=== PATIENT | female | born 1995 | race American Indian/Alaskan Native ===

== ENCOUNTER 2017-11-11 14:17 | Inpatient (IN) | payer MEDICAID ==
[2017-11-11 15:22] LABS: ALB/GLOB RATIO 1.2 (1.0-2.1); ALBUMIN 4.4 g/dL (3.5-5.0); CALCIUM 8.5 mg/dl (8.6-10.4); GFR AFRICAN-AMERICAN > 60; GFR NON-AFRICAN AMERICAN > 60; LIPASE 115 U/L (23-300)
[2017-11-11 15:24] LABS: ALT/SGPT 11 U/L (9-52); AST/SGOT 38 U/L (14-36); BLOOD UREA NITROGEN 6 mg/dL (7-17)
[2017-11-11 15:32] LABS: MEAN CELL VOLUME 58.5 fL (81.0-99.0); MEAN CORPUSCULAR HEMOGLOBIN 17.1 pg (27.0-31.0); MEAN CORPUSCULAR HGB CONC 29.3 g/dL (33.0-37.0); MEAN PLATELET VOLUME 8.4 fL (7.2-11.7); RBC 2.68 Mil/uL (3.80-5.20); RED CELL DISTRIBUTION WIDTH 29.2 % (11.5-14.5); WHITE BLOOD COUNT 5.4 K/uL (4.8-10.8)
[2017-11-11 15:36] LABS: HEMOGLOBIN 4.6 g/dL (11.0-16.0)
[2017-11-11 15:37] LABS: INR 1.1; PROTHROMBIN TIME 12.7 SECONDS (9.7-12.2)
--- NOTE | 2017-11-11 16:22 | US ---
PROCEDURE: OB Pelvic Ultrasound HISTORY: low H/H COMPARISON: None available. FINDINGS: UTERUS: Single Live intrauterine gestation. CRL this 40 mm above the 10 weeks 6 days gestational age. Mean gestational sac diameter is 46 mm equivalent to 10 weeks 2 days. The composite gestational age by ultrasound is 10 weeks 4 days. The JOSE ALBERTO by ultrasound is 06/05/2018. A 4 mm yolk sac is visualized. Heart rate: 161 bpm. Ioana-gestational hemorrhage: None. 4 mm yolk sac identified. Uterus measures 12.2 x 7.7 x 9.1 cm. No mass CERVIX: Long and closed. No cervical abnormality seen. RIGHT OVARY: Measures 3.6 x 2.5 x 3.0 cm. No mass. Normal flow. LEFT OVARY: Measures 2.8 x 1.7 x 2.6 cm. No mass. Normal flow. FREE FLUID: None. OTHER FINDINGS: None. IMPRESSION: Single live intrauterine gestation of approximately 10 weeks 4 days gestational age. heart rate 161 beats per minute. No subchorionic hemorrhage. JOSE ALBERTO by ultrasound 06/05/2018.
[2017-11-11 16:37] LABS: SQUAMOUS EPITHIAL 3 /hpf (0-5); URINE BACTERIA FEW (<OCC); URINE BILIRUBIN NEGATIVE (NEGATIVE); URINE BLOOD NEGATIVE (NEGATIVE); URINE CLARITY Clear (Clear); URINE COLOR Yellow (YELLOW); URINE GLUCOSE (UA) NORMAL (Normal); URINE LEUKOCYTE ESTERASE 1+ Leu/uL (Negative); URINE NITRATE NEGATIVE (NEGATIVE); URINE PROTEIN NEGATIVE (NEGATIVE)
--- NOTE | 2017-11-11 17:05 | C.PDOC ---
History Of Present Illness 22 year old female presents to the ED after being sent from clinic for evaluation of low hemoglobin levels. Patient is and had her LMP on 09/02. Patient states she has been feeling fatigued for several months, but attributed the fatigue to heat during the summer months and to her currently. She states she was anemic during her first but only required iron and no transfusions. Patient has not undergone any hematological workup for her anemia and denies vaginal bleeding, vaginal discharge, bloody urine, and bloody stool at this time. Time Seen by Provider: 11/11/17 14:28 Chief Complaint (Nursing): Abnormal Labs History Per: Patient History/Exam Limitations: no limitations Onset/Duration Of Symptoms: Hrs Current Symptoms Are (Timing): Still Present Additional History Per: Patient Past Medical History Reviewed: Historical Data, Nursing Documentation, Vital Signs Vital Signs: Last Vital Signs Temp 98.9 F 11/11/17 18:15 Pulse 81 11/11/17 18:15 Resp 16 11/11/17 18:15 BP 116/63 11/11/17 18:15 Pulse Ox 100 11/11/17 18:15 - Medical History PMH: No Chronic Diseases Surgical History: No Surg Hx Family History: States: Unknown Family Hx - Social History Hx Alcohol Use: No Hx Substance Use: No - Immunization History Hx Tetanus Toxoid Vaccination: No Hx Influenza Vaccination: No Hx Pneumococcal Vaccination: No Review Of Systems Constitutional: Positive for: Other (low hemoglobin levels, generalized fatigue ) Gastrointestinal: Negative for: Hematochezia Genitourinary: Negative for: Hematuria, Vaginal Discharge, Vaginal Bleeding Physical Exam - Physical Exam Appears: Non-toxic, No Acute Distress Skin: Normal Color, Warm, Dry Head: Atraumatic, Normacephalic Eye(s): bilateral: Conjunctiva Pale Oral Mucosa: Moist Neck: Supple Chest: Symmetrical, No Deformity, No Tenderness Cardiovascular: Rhythm Regular, No Murmur Respiratory: Normal Breath Sounds, No Rales, No Rhonchi, No Wheezing Gastrointestinal/Abdominal: Soft, No Tenderness, No Guarding, No Rebound Extremity: Normal ROM, Capillary Refill (less than 2 seconds ) Neurological/Psych: Oriented x3, Normal Speech, Normal Cognition Gait: Steady ED Course And Treatment - Laboratory Results Result Diagrams: 11/11/17 15:18 11/11/17 14:55 O2 Sat by Pulse Oximetry: 100 (on RA) Pulse Ox Interpretation: Normal - CT Scan/US OB Pelvic US Other Rad Studies (CT/US): Interpreted By Me, Read By Radiologist, Radiology Report Reviewed CT/US Interpretation: PROCEDURE: OB Pelvic Ultrasound. HISTORY: low H/H. COMPARISON: None available. FINDINGS: UTERUS: Single Live intrauterine gestation. CRL this 40 mm above the 10 weeks 6 days gestational age. Mean gestational sac diameter is 46 mm equivalent to 10 weeks 2 days. The composite gestational age by ultrasound is 10 weeks 4 days. The JOSE ALBERTO by ultrasound is 06/05. A 4 mm yolk sac is visualized. Heart rate: 161 bpm. Ioana- gestational hemorrhage: None. 4 mm yolk sac identified. Uterus measures 12.2 x 7.7 x 9.1 cm. No mass. CERVIX: Long and closed. No cervical abnormality seen. RIGHT OVARY: Measures 3.6 x 2.5 x 3.0 cm. No mass. Normal flow. LEFT OVARY: Measures 2.8 x 1.7 x 2.6 cm. No mass. Normal flow. FREE FLUID: None. OTHER FINDINGS: None. IMPRESSION: Single live intrauterine gestation of approximately 10 weeks 4 days gestational age. heart rate 161 beats per minute. No subchorionic hemorrhage. JOSE ALBERTO by ultrasound 06/05/2018. Medical Decision Making Medical Decision Making: Progress: Bloodwork, Urinalysis, and US ordered and reviewed. Spoke to Dr. Haynes who recommended medical admission, and will be consulted on floor. Disposition - Disposition Disposition: HOME/ ROUTINE Disposition Time: 16:30 Condition: STABLE - Clinical Impression Clinical Impression: Anemia, and not yet delivered in first trimester - Scribe Statement The provider has reviewed the documentation as recorded by the Scribe (Xochitl Moulton) Provider Attestation: All medical record entries made by the Scribe were at my direction and personally dictated by me. I have reviewed the chart and agree that the record accurately reflects my personal performance of the history, physical exam, medical decision making, and the department course for this patient. I have also personally directed, reviewed, and agree with the discharge instructions and disposition.
--- NOTE | 2017-11-11 18:51 | CP.PCM.HP ---
Past Patient History - Past Social History Smoking Status: Heavy Smoker > 10 Cigarettes Daily - PSYCHIATRIC Hx Substance Use: No - SURGICAL HISTORY Hx Surgeries: No - ANESTHESIA Hx Anesthesia: No Hx Anesthesia Reactions: No Meds Allergies/Adverse Reactions: Allergies Allergy/AdvReac Type Severity Reaction Status Date / Time No Known Allergies Allergy Unverified 11/11/17 14:20 Results - Vital Signs Recent Vital Signs: Last Vital Signs Temp 98.9 F 11/11/17 18:15 Pulse 81 11/11/17 18:15 Resp 16 11/11/17 18:15 BP 116/63 11/11/17 18:15 Pulse Ox 100 11/11/17 18:15 - Labs Result Diagrams: 11/11/17 15:18 11/11/17 14:55 Labs: Laboratory Results - last 24 hr 11/11/17 11/11/17 11/11/17 14:55 14:55 14:55 WBC RBC Hgb Hct MCV MCH MCHC RDW Plt Count MPV PT INR APTT Sodium 133 Potassium 3.9 Chloride 103 Carbon Dioxide 21 L Anion Gap 14 BUN 6 L Creatinine 0.4 L Est GFR ( Amer) > 60 Est GFR (Non-Af Amer) > 60 Random Glucose 87 Calcium 8.5 L Total Bilirubin 0.6 AST 38 H ALT 11 Alkaline Phosphatase 34 L Total Protein 8.1 Albumin 4.4 Globulin 3.7 Albumin/Globulin Ratio 1.2 Lipase 115 Beta HCG, Quant 42293.00 Urine Color Urine Clarity Urine pH Ur Specific [place] Urine Protein Urine Glucose (UA) Urine Ketones Urine Blood Urine Nitrate Urine Bilirubin Urine Urobilinogen Ur Leukocyte Esterase Urine WBC (Auto) Urine RBC (Auto) Ur Squamous Epith Cells Urine Bacteria Blood Type B POSITIVE Antibody Screen Negative 11/11/17 11/11/17 11/11/17 15:18 15:18 16:09 WBC 5.4 RBC 2.68 L Hgb 4.6 L* Hct 15.7 L MCV 58.5 L MCH 17.1 L MCHC 29.3 L RDW 29.2 H Plt Count 145 MPV 8.4 PT 12.7 H INR 1.1 APTT 29 Sodium Potassium Chloride Carbon Dioxide Anion Gap BUN Creatinine Est GFR ( Amer) Est GFR (Non-Af Amer) Random Glucose Calcium Total Bilirubin AST ALT Alkaline Phosphatase Total Protein Albumin Globulin Albumin/Globulin Ratio Lipase Beta HCG, Quant Urine Color Yellow Urine Clarity Clear Urine pH 5.0 Ur Specific [place] 1.024 Urine Protein Negative Urine Glucose (UA) Normal Urine Ketones Negative Urine Blood Negative Urine Nitrate Negative Urine Bilirubin Negative Urine Urobilinogen 4.0 H Ur Leukocyte Esterase 1+ H Urine WBC (Auto) 6 H Urine RBC (Auto) 1 Ur Squamous Epith Cells 3 Urine Bacteria Few H Blood Type Antibody Screen
--- NOTE | 2017-11-11 19:26 | CP.PCM.CON ---
History of Present Illness - History of Present Illness History of Present Illness: 22 yr lmp 09/04/17 10.4weks edc 06/06/17 was send to er [facility] showed h/h very low. no vb. pt came to er. severe anmic. pt states undesird prgeg and wants termination. pt stats sob when walks for long time.no chest pain. obhx 2 x , 2 x ta pmh anemia med none all nkda psh de soch de abd soft,non tender h/h 4.6/15.7 Past Patient History - Past Social History Smoking Status: Heavy Smoker > 10 Cigarettes Daily - PSYCHIATRIC Hx Substance Use: No - SURGICAL HISTORY Hx Surgeries: No - ANESTHESIA Hx Anesthesia: No Hx Anesthesia Reactions: No Meds Allergies/Adverse Reactions: Allergies Allergy/AdvReac Type Severity Reaction Status Date / Time No Known Allergies Allergy Unverified 11/11/17 14:20 - Medications Medications: Current Medications Pantoprazole Sodium (Protonix Ec Tab) 40 mg PO DAILY JONNA Results - Vital Signs Recent Vital Signs: Last Vital Signs Temp 98.9 F 11/11/17 18:15 Pulse 81 11/11/17 18:15 Resp 16 11/11/17 18:15 BP 116/63 11/11/17 18:15 Pulse Ox 100 11/11/17 18:55 - Labs Result Diagrams: 11/11/17 15:18 11/11/17 14:55 Labs: Laboratory Results - last 24 hr 11/11/17 11/11/17 11/11/17 14:55 14:55 14:55 WBC RBC Hgb Hct MCV MCH MCHC RDW Plt Count MPV PT INR APTT Sodium 133 Potassium 3.9 Chloride 103 Carbon Dioxide 21 L Anion Gap 14 BUN 6 L Creatinine 0.4 L Est GFR ( Amer) > 60 Est GFR (Non-Af Amer) > 60 Random Glucose 87 Calcium 8.5 L Total Bilirubin 0.6 AST 38 H ALT 11 Alkaline Phosphatase 34 L Total Protein 8.1 Albumin 4.4 Globulin 3.7 Albumin/Globulin Ratio 1.2 Lipase 115 Beta HCG, Quant 09735.00 Urine Color Urine Clarity Urine pH Ur Specific [place] Urine Protein Urine Glucose (UA) Urine Ketones Urine Blood Urine Nitrate Urine Bilirubin Urine Urobilinogen Ur Leukocyte Esterase Urine WBC (Auto) Urine RBC (Auto) Ur Squamous Epith Cells Urine Bacteria Blood Type B POSITIVE Antibody Screen Negative 11/11/17 11/11/17 11/11/17 15:18 15:18 16:09 WBC 5.4 RBC 2.68 L Hgb 4.6 L* Hct 15.7 L MCV 58.5 L MCH 17.1 L MCHC 29.3 L RDW 29.2 H Plt Count 145 MPV 8.4 PT 12.7 H INR 1.1 APTT 29 Sodium Potassium Chloride Carbon Dioxide Anion Gap BUN Creatinine Est GFR ( Amer) Est GFR (Non-Af Amer) Random Glucose Calcium Total Bilirubin AST ALT Alkaline Phosphatase Total Protein Albumin Globulin Albumin/Globulin Ratio Lipase Beta HCG, Quant Urine Color Yellow Urine Clarity Clear Urine pH 5.0 Ur Specific [place] 1.024 Urine Protein Negative Urine Glucose (UA) Normal Urine Ketones Negative Urine Blood Negative Urine Nitrate Negative Urine Bilirubin Negative Urine Urobilinogen 4.0 H Ur Leukocyte Esterase 1+ H Urine WBC (Auto) 6 H Urine RBC (Auto) 1 Ur Squamous Epith Cells 3 Urine Bacteria Few H Blood Type Antibody Screen Assessment & Plan - Assessment and Plan (Free Text) Assessment: 22 yr at 10+weeks severe anemia/undesired preg Plan: plan once pateint is discharge [facility]. cont medical mangement cont blood transfusion. Thank you for consult - Date & Time Date: 11/11/17 Time: 07:40
--- NOTE | 2017-11-11 19:34 | CP.PCM.PN ---
Subjective - Date & Time of Evaluation Date of Evaluation: 11/11/17 Time of Evaluation: 08:40 - Subjective Subjective: clinically same Objective - Vital Signs/Intake and Output Vital Signs (last 24 hours): Temp Pulse Resp BP Pulse Ox 98.6 F 89 20 107/64 100 11/11/17 19:00 11/11/17 19:00 11/11/17 19:00 11/11/17 19:00 11/11/17 19:00 - Medications Medications: Current Medications Pantoprazole Sodium (Protonix Ec Tab) 40 mg PO DAILY JONNA - Labs Labs: 11/11/17 15:18 11/11/17 14:55 PT 12.7 SECONDS (9.7-12.2) H 11/11/17 15:18 INR 1.1 11/11/17 15:18 APTT 29 SECONDS (21-34) 11/11/17 15:18 - Constitutional Appears: Well - Head Exam Head Exam: ATRAUMATIC, NORMAL INSPECTION, NORMOCEPHALIC - Eye Exam Eye Exam: EOMI, Normal appearance, PERRL Pupil Exam: NORMAL ACCOMODATION, PERRL - ENT Exam ENT Exam: Mucous Membranes Moist, Normal Exam - Neck Exam Neck Exam: Full ROM, Normal Inspection. absent: Lymphadenopathy - Respiratory Exam Respiratory Exam: Decreased Breath Sounds - Cardiovascular Exam Cardiovascular Exam: REGULAR RHYTHM, +S1, +S2 - GI/Abdominal Exam GI & Abdominal Exam: Soft, Diminished Bowel Sounds - Rectal Exam Rectal Exam: Deferred
[2017-11-12 07:58] VITALS: RESP 20
[2017-11-12] MEDS ORDERED: Ferric Sodium Gluconat Complex 62.5 mg/5 ml Vial IVPB SCH (10:00)
[2017-11-12] MEDS ORDERED: Ferric Sodium Gluconat Complex 125 MG in Sodium Chloride 0.9% 100 ML IVPB SCH (10:00)
[2017-11-12] MEDS ORDERED: Pantoprazole 40 mg EC Tab PO SCH (10:00)
[2017-11-12 11:51] LABS: BASO % 0.5 % (0.0-2.0); EOS # 0.1 K/uL (0.0-0.7); EOS % 1.9 % (0.0-4.0); LYMPH # 1.4 K/uL (1.0-4.3); LYMPH % 24.1 % (20.0-40.0); MEAN CORPUSCULAR HEMOGLOBIN 22.4 pg (27.0-31.0); MEAN CORPUSCULAR HGB CONC 32.3 g/dL (33.0-37.0); MEAN PLATELET VOLUME 9.1 fL (7.2-11.7); MONO # 0.4 K/uL (0.0-0.8); MONO % 6.2 % (0.0-10.0); NEUT % 67.3 % (50.0-75.0); NRBC % 0.1 % (0.0-2.0); RBC 4.17 Mil/uL (3.80-5.20); RED CELL DISTRIBUTION WIDTH 31.5 % (11.5-14.5)
[2017-11-12 12:04] LABS: HEMOGLOBIN 9.3 g/dL (11.0-16.0); MEAN CELL VOLUME 69.3 fL (81.0-99.0)
--- NOTE | 2017-11-12 15:05 | CP.PCM.PN ---
Subjective - Date & Time of Evaluation Date of Evaluation: 11/12/17 Time of Evaluation: 09:20 - Subjective Subjective: clinically same Objective - Vital Signs/Intake and Output Vital Signs (last 24 hours): Temp Pulse Resp BP Pulse Ox 98.1 F 66 20 97/60 L 97 11/12/17 07:55 11/12/17 07:55 11/12/17 07:55 11/12/17 07:55 11/12/17 07:55 Intake and Output: 11/12/17 11/12/17 06:59 18:59 Intake Total 1075 1685 Balance 1075 1685 - Medications Medications: Current Medications Ferric Sodium Gluconate Complex 125 mg/ Sodium Chloride 110 mls @ 110 mls/hr IVPB DAILY JONNA Stop: 11/20/17 10:01 Last Admin: 11/12/17 09:47 Dose: 110 mls/hr Pantoprazole Sodium (Protonix Ec Tab) 40 mg PO DAILY JONNA Last Admin: 11/12/17 09:47 Dose: 40 mg - Labs Labs: 11/12/17 11:40 11/11/17 14:55 PT 12.7 SECONDS (9.7-12.2) H 11/11/17 15:18 INR 1.1 11/11/17 15:18 APTT 29 SECONDS (21-34) 11/11/17 15:18
[2017-11-12 16:04] VITALS: BP 102/63; PULSE 75; TEMP 98.5; O2SAT 100
--- NOTE | 2017-11-12 16:31 | CP.PCM.PN ---
Subjective - Date & Time of Evaluation Date of Evaluation: 11/12/17 Time of Evaluation: 16:29 - Subjective Subjective: SEEN BY DR NANCE AND CLEARED FOR D/C HOME TODAY. HGB POST-TRANSFUSION 9.3, DR. NANCE AWARE OF LAB RESULTS. PT CLEARED BY BUREAU DIRECTOR; INSTRUCTED TO FOLLOW UP [facility] FOR FURTHER RELATED CONCERNS AND FOR TERMINATION OF IF SHE STILL WISHES. RX GIVEN FOR FEOSOL AND COLACE. CAN F/U WITH [facility] IN THE OFFICE. NO FURTHER ORDERS. Objective - Vital Signs/Intake and Output Vital Signs (last 24 hours): Temp Pulse Resp BP Pulse Ox 98.5 F 75 20 102/63 100 11/12/17 16:03 11/12/17 16:03 11/12/17 16:03 11/12/17 16:03 11/12/17 16:03 Intake and Output: 11/12/17 11/12/17 06:59 18:59 Intake Total 1075 1685 Balance 1075 1685 - Medications Medications: Current Medications Ferric Sodium Gluconate Complex 125 mg/ Sodium Chloride 110 mls @ 110 mls/hr IVPB DAILY [facility] Stop: 11/20/17 10:01 Last Admin: 11/12/17 09:47 Dose: 110 mls/hr Pantoprazole Sodium (Protonix Ec Tab) 40 mg PO DAILY [facility] Last Admin: 11/12/17 09:47 Dose: 40 mg - Labs Labs: 11/12/17 11:40 11/11/17 14:55 PT 12.7 SECONDS (9.7-12.2) H 11/11/17 15:18 INR 1.1 11/11/17 15:18 APTT 29 SECONDS (21-34) 11/11/17 15:18
[2017-11-12] MEDS ORDERED: Influenza Vaccine 60 mcg/0.5 mL SYR (4YR UP) IM ONE (16:53)
[2017-11-12] MEDS ORDERED: Pneumococcal 23-Valent Vaccine IM ONE (16:53)
== END 2017-11-12 17:29 | disposition home or self-care (01) | DRG 886 ==
LOC: C.ER 14:17 → C.9E 16:50 → C.3T 18:16
PROVIDERS: ADMIT Internal Medicine Nephrology; ATTEND Internal Medicine Nephrology
PROC: 30233N1 Transfusion of Nonautologous Red Blood Cells into Peripheral Vein, Percutaneous Approach (ICD-10-PCS; principal; 2017-11-12)
DX: O99.011 Anemia complicating pregnancy, first trimester (principal); D64.9 Anemia, unspecified; Z3A.10 10 weeks gestation of pregnancy; O99.331 Smoking (tobacco) complicating pregnancy, first trimester; F17.210 Nicotine dependence, cigarettes, uncomplicated; Z64.0 Problems related to unwanted pregnancy